=== PATIENT | female | born 1955 | race Hispanic/Latino ===

== ENCOUNTER 2021-03-03 05:26 | Inpatient (IN) | payer SELFPAY ==
[2021-03-03] MEDS ORDERED: IPRATROPIUM 0.02% NEBU 2.5 ML IH NR (06:38)
[2021-03-03] MEDS ORDERED: ALBUTEROL 2.5 MG/3 ML NEBU IH NR (06:38)
--- NOTE | 2021-03-03 06:47 | Emergency Department Report ---
HPI - General Chief Complaint: Dyspnea/Respdistress Time Seen by Provider: 03/03/21 06:31 - [facility] HPI: [place] 24 The patient is a 66-year-old female present with chief complaint of shortness of breath. Patient has a history of COPD and states she developed shortness of breath last night 20: 00. Patient has a subjective fever and states she has had an occasional cough productive of clear sputum for the past 3 to 4 months. Patient states she has been vaccinated against Covid receiving her second Pfizer shot approximately 1-2 months ago. ED Past Medical Hx - Past Medical History Previous Medical History?: Yes Hx Congestive Heart Failure: Yes Hx Diabetes: Yes Hx Kidney Stones: Yes Hx COPD: Yes Additional medical history: A-Fib - Surgical History Past Surgical History?: No Hx Appendectomy: Yes - Family History Family history: no significant - Social History Smoking Status: Former Smoker (None for over 5 years) Substance Use Type: Alcohol (Occasional) ED Review of Systems ROS: Stated complaint: SHORTNESS OF BREATH Other details as noted in HPI Constitutional: fever (Subjective) Eyes: denies: eye pain ENT: denies: throat pain Respiratory: cough, shortness of breath Cardiovascular: denies: chest pain Endocrine: no symptoms reported Genitourinary: denies: dysuria Musculoskeletal: denies: back pain Neurological: denies: headache Physical Exam - Physical Exam Vital Signs: Vital Signs 03/03/21 05:36 Temperature 99.7 F H Pulse Rate 105 H Respiratory 22 Rate Blood Pressure 139/67 [Right] O2 Sat by Pulse 93 Oximetry Physical Exam: GENERAL: The patient is well-developed well-nourished female lying on stretcher not appearing to be in acute distress. [] HEENT: Normocephalic. Atraumatic. Extraocular motions are intact. Patient has moist mucous membranes. NECK: Supple. Trachea midline CHEST/LUNGS: Occasional wheeze, occasional rhonchi. There is no respiratory distress noted. HEART/CARDIOVASCULAR: Irregularly irregular. There is no tachycardia. There is no gallop rub or murmur. ABDOMEN: Abdomen is soft, nontender. Patient has normal bowel sounds. There is no abdominal distention. SKIN: There is no rash. There is 1+ bilateral lower extremity edema. There is no diaphoresis. NEURO: The patient is awake, alert, and oriented. The patient is cooperative. The patient has no focal neurologic deficits. The patient has normal speech MUSCULOSKELETAL: There is no evidence of acute injury. ED Course Vital Signs 03/03/21 05:36 Temperature 99.7 F H Pulse Rate 105 H Respiratory 22 Rate Blood Pressure 139/67 [Right] O2 Sat by Pulse 93 Oximetry ED Medical Decision Making - Lab Data Result diagrams: 03/03/21 07:41 03/03/21 07:41 Laboratory Tests 03/03/21 03/03/21 03/03/21 07:41 07:41 07:41 WBC 14.9 H RBC 4.76 Hgb 13.4 Hct 42.0 MCV 88 MCH 28 MCHC 32 RDW 14.8 Plt Count 391 Lymph % (Auto) 7.2 L [place] % (Auto) 9.8 H Eos % (Auto) 0.7 Baso % (Auto) 0.9 Lymph # (Auto) 1.1 L [place] # (Auto) 1.5 H Eos # (Auto) 0.1 Baso # (Auto) 0.1 Seg Neutrophils % 81.4 H Seg Neutrophils # 12.1 H Sodium 136 L Potassium 4.5 Chloride 96.7 L Carbon Dioxide 26 Anion Gap 18 BUN 10 Creatinine 0.5 L Estimated GFR > 60 BUN/Creatinine Ratio 20 Glucose 135 H Lactic Acid 1.30 Calcium 9.1 NT-Pro-B Natriuret Pep 535.0 - EKG Data -: EKG Interpreted by Me EKG shows normal: axis Rate: tachycardia (107 bpm) - EKG Data When compared to previous EKG there are: previous EKG unavailable Interpretation: other (Atrial fibrillation) - Radiology Data Radiology results: report reviewed (Chest x-ray), image reviewed (Chest x-ray) interpreted by me: Chest [id number]. No definite focal infiltrate. No pneumothorax [facility] [address] [place] [address] XRay Report Signed Patient: CYRUS MEDLEY MR#: [id number] : 1955 Acct:[id number] Age/Sex: 66 / F ADM Date: 03/03/21 Loc: ED Attending Dr: Ordering Physician: ELIDIA HAIR MD Date of Service: 03/03/21 Procedure(s): XR chest 1V ap Accession Number(s): [id number] cc: ELIDIA HAIR MD Fluoro Time In Minutes: CHEST 1 VIEW INDICATION / CLINICAL INFORMATION: Shortness of breath, cough. COMPARISON: None available. FINDINGS: SUPPORT DEVICES: None. HEART / MEDIASTINUM: Enlarged cardiac silhouette. LUNGS / PLEURA: No significant pulmonary or pleural abnormality. No pneumothorax. ADDITIONAL FINDINGS: No significant additional findings. IMPRESSION: Enlarged cardiac silhouette without evidence of acute pulmonary findings. Signer Name: Scot Nicholas MD Signed: 03/03/2021 8:43 AM Workstation Name: [id number] Transcribed By: MIKE Dictated By: SCOT NICHOLAS MD Electronically Authenticated By: SCOT NICHOLAS MD Signed Date/Time: 03/03/21842 DD/ 1 TD/TT: Print Cancel - Medical Decision Making SPO2 85% on room air - Differential Diagnosis COPD exacerbation, CHF exacerbation, bronchitis, pneumonia Critical care attestation.: If time is entered above; I have spent that time in minutes in the direct care of this critically ill patient, excluding procedure time. ED Disposition Clinical Impression: Hypoxia, COPD exacerbation Disposition: ADMITTED INPATIENT Is pt being admited?: Yes Does the pt Need Aspirin: No Condition: Fair Instructions: Chronic Obstructive Pulmonary Disease (ED) Referrals: PRIMARY CARE, [Primary Care Provider] - 3-5 Days Time of Disposition: 10:20 (Hospitalist called (Dr Velásquez))
[2021-03-03 08:10] LABS: Basophils # (Auto) 0.1 K/mm3 (0.0-0.1); Basophils % (Auto) 0.9 % (0.0-1.8); Eosinophils # (Auto) 0.1 K/mm3 (0.0-0.4); Eosinophils % (Auto) 0.7 % (0.0-4.3); Hemoglobin 13.4 gm/dl (10.1-14.3); Lymphocytes # (Auto) 1.1 K/mm3 (1.2-5.4); Lymphocytes % (Auto) 7.2 % (13.4-35.0); Mean Corpuscular HGB Conc 32 % (30-34); Mean Corpuscular Volume 88 fl (79-97); Monocytes # (Auto) 1.5 K/mm3 (0.0-0.8); Monocytes % (Auto) 9.8 % (0.0-7.3); Platelet Count 391 K/mm3 (140-440); Red Blood Count 4.76 M/mm3 (3.65-5.03); Red Cell Distribution Width 14.8 % (13.2-15.2)
[2021-03-03] MEDS ORDERED: predniSONE 20 MG TAB PO ONE (08:18)
[2021-03-03 08:19] LABS: Blood Urea Nitrogen 10 mg/dL (7-17); Calcium 9.1 mg/dL (8.4-10.2); Hemolysis Index 3
[2021-03-03 08:36] LABS: BUN/Creatinine Ratio 20
--- NOTE | 2021-03-03 08:48 | XRay Report ---
CHEST 1 VIEW INDICATION / CLINICAL INFORMATION: Shortness of breath, cough. COMPARISON: None available. FINDINGS: SUPPORT DEVICES: None. HEART / MEDIASTINUM: Enlarged cardiac silhouette. LUNGS / PLEURA: No significant pulmonary or pleural abnormality. No pneumothorax. ADDITIONAL FINDINGS: No significant additional findings. IMPRESSION: Enlarged cardiac silhouette without evidence of acute pulmonary findings. Signer Name: Scot Barnett MD Signed: 03/03/2021 8:43 AM Workstation Name: [id number]
[2021-03-03] MEDS ORDERED: HYDROcodone/ACETAMINOPHEN 5-325 MG TAB PO ONE (09:53)
[2021-03-03] MEDS ORDERED: MORPHINE 4 MG/1 ML INJ IV PRN (11:05)
--- NOTE | 2021-03-03 11:05 | History and Physical Report ---
History of Present Illness Date of examination: 03/03/21 Date of admission: 03/03/21 10:22 Chief complaint: sob History of present illness: 66-year-old female with significant past medical history of COPD, atrial fibrillation CHF and diabetes mellitus type 2 who presents to the emergency department with complaint of shortness of breath. The patient states that she has had dyspnea for several months but progressively worsen which prompted her visit to the emergency room last night at 8 PM. Patient also reports subjective fever and an occasional cough productive of clear sputum for the past 3 to 4 months. Patient states she has been vaccinated against Covid receiving her second Pfizer shot approximately 1-2 months ago. Patient denies headache or visual disturbances. No nausea, vomiting or diarrhea Past History Past Medical History: atrial fib, COPD, diabetes, heart failure Past Surgical History: No surgical history Social history: smoking (Tobacco abuse [id number] history) Family history: no significant family history Medications and Allergies Allergies Allergy/AdvReac Type Severity Reaction Status Date / Time No Known Allergies Allergy Unverified 03/03/21 08:00 Review of Systems All systems: negative Exam - Constitutional Vitals: Temp Pulse Resp BP Pulse Ox 98.3 F 106 H 19 125/65 95 03/03/21 07:33 03/03/21 07:45 03/03/21 07:57 03/03/21 07:45 03/03/21 07:57 General appearance: Present: no acute distress, well-nourished - EENT Eyes: Present: PERRL ENT: hearing intact, clear oral mucosa - Neck Neck: Present: supple, normal ROM - Respiratory Respiratory effort: normal Respiratory: bilateral: CTA - Cardiovascular Heart Sounds: Present: S1 & S2. Absent: rub, click - Extremities Extremities: pulses symmetrical, No edema Peripheral Pulses: within normal limits - Abdominal General gastrointestinal: Present: soft, non-tender, non-distended, normal bowel sounds Female genitourinary: Present: normal - Integumentary Integumentary: Present: clear, warm, dry - Musculoskeletal Musculoskeletal: gait normal, strength equal bilaterally - Psychiatric Psychiatric: appropriate mood/affect, intact judgment & insight - Neurologic Neurologic: CNII-XII intact, moves all extremities Results - Labs CBC & Chem 7: 03/03/21 07:41 03/03/21 07:41 Labs: Laboratory Last Values WBC 14.9 K/mm3 (4.5-11.0) H 03/03/21 07:41 RBC 4.76 M/mm3 (3.65-5.03) 03/03/21 07:41 Hgb 13.4 gm/dl (10.1-14.3) 03/03/21 07:41 Hct 42.0 % (30.3-42.9) 03/03/21 07:41 MCV 88 fl (79-97) 03/03/21 07:41 MCH 28 pg (28-32) 03/03/21 07:41 MCHC 32 % (30-34) 03/03/21 07:41 RDW 14.8 % (13.2-15.2) 03/03/21 07:41 Plt Count 391 K/mm3 (140-440) 03/03/21 07:41 Lymph % (Auto) 7.2 % (13.4-35.0) L 03/03/21 07:41 [place] % (Auto) 9.8 % (0.0-7.3) H 03/03/21 07:41 Eos % (Auto) 0.7 % (0.0-4.3) 03/03/21 07:41 Baso % (Auto) 0.9 % (0.0-1.8) 03/03/21 07:41 Lymph # (Auto) 1.1 K/mm3 (1.2-5.4) L 03/03/21 07:41 [place] # (Auto) 1.5 K/mm3 (0.0-0.8) H 03/03/21 07:41 Eos # (Auto) 0.1 K/mm3 (0.0-0.4) 03/03/21 07:41 Baso # (Auto) 0.1 K/mm3 (0.0-0.1) 03/03/21 07:41 Seg Neutrophils % 81.4 % (40.0-70.0) H 03/03/21 07:41 Seg Neutrophils # 12.1 K/mm3 (1.8-7.7) H 03/03/21 07:41 ABG pH 7.568 (7.320-7.450) H 03/03/21 09:59 POC ABG pCO2 23.3 mmHg (32.0-48.0) L 03/03/21 09:59 POC ABG pO2 81.3 mmHg (83-108) L 03/03/21 09:59 POC ABG HCO3 2.6 03/03/21 09:59 ABG O2 Saturation 97.4 (0-100) 03/03/21 09:59 POC ABG Base Excess 0.4 03/03/21 09:59 ABG Hemoglobin 13.3 (12.0-17.5) 03/03/21 09:59 ABG Oxyhemoglobin 97.4 (94-98) 03/03/21 09:59 ABG Methemoglobin 0.3 (0.0-1.5) 03/03/21 09:59 ABG Sodium 144.2 mmol/L (136.0-145.0) 03/03/21 09:59 ABG Potassium 4.5 mmol/L (3.40-4.50) 03/03/21 09:59 ABG Chloride 106.0 mmol/L (98-107) 03/03/21 09:59 ABG Glucose 143 mg/dL (65-95) H 03/03/21 09:59 Carboxyhemoglobin 0.9 (0.5-1.5) 03/03/21 09:59 FiO2 % 0.21 03/03/21 09:59 Sodium 136 mmol/L (137-145) L 03/03/21 07:41 Potassium 4.5 mmol/L (3.6-5.0) 03/03/21 07:41 Chloride 96.7 mmol/L (98-107) L 03/03/21 07:41 Carbon Dioxide 26 mmol/L (22-30) 03/03/21 07:41 Anion Gap 18 mmol/L 03/03/21 07:41 BUN 10 mg/dL (7-17) 03/03/21 07:41 Creatinine 0.5 mg/dL (0.6-1.2) L 03/03/21 07:41 Estimated GFR > 60 ml/min 03/03/21 07:41 BUN/Creatinine Ratio 20 % 03/03/21 07:41 Glucose 135 mg/dL (65-100) H 03/03/21 07:41 Lactic Acid 1.30 mmol/L (0.7-2.0) 03/03/21 07:41 Calcium 9.1 mg/dL (8.4-10.2) 03/03/21 07:41 NT-Pro-B Natriuret Pep 535.0 pg/mL (0-900) 03/03/21 07:41 Arterial Blood Glucose 143 mg/dL (65-95) H 03/03/21 09:59 Arterial Blood Ionized Calcium 4.3 mg/dL (4.6-5.3) L 03/03/21 09:59 Microbiology: Microbiology 03/03/21 07:41 Peripheral/Venous Blood Culture - Preliminary Culture in Progress 03/03/21 07:41 Peripheral/Venous Blood Culture - Preliminary Culture in Progress Assessment and Plan Assessment and plan: Acute hypoxic respiratory failure COPD exacerbation Chronic heart failure Diabetes mellitus type 2 Atrial fibrillation 03/03/2021. The patient will be admitted and started on COPD pathway. Patient will receive bronchodilators/nebulizers along with IV steroids. Continue O2 to maintain sats greater than 92%. Consider pulmonary consultation. Check echocardiogram for further evaluation of heart function. Accu-Cheks and SSRI. Resume home medications for heart failure, diabetes and A. fib. Consider cardiology consultation.
[2021-03-03] MEDS ORDERED: ACETAMINOPHEN 325 MG TAB PO PRN (12:00)
[2021-03-03] MEDS ORDERED: ONDANSETRON 4 MG/2 ML INJ IV PRN (12:00)
[2021-03-03] MEDS ORDERED: MORPHINE 2 MG/1 ML INJ IV PRN (12:00)
[2021-03-03] MEDS ORDERED: DEXTROSE 50% IN WATER (25GM) 50 ML SYRINGE IV PRN (12:00)
[2021-03-03] MEDS ORDERED: ALBUTEROL 2.5 MG/3 ML NEBU IH PRN (12:00)
[2021-03-03] MEDS: INSULIN REGULAR, HUMAN 100 UNITS/1 ML SUB-Q SCH ×3 (13:47→21:29)
[2021-03-03] MEDS: HEPARIN 5,000 UNIT/1 ML VIAL SUB-Q SCH ×3 (13:47→21:13)
[2021-03-03] MEDS: methylPREDNISolone Sod Succinate 40 MG/1 ML INJ IV SCH (21:13)
[2021-03-03] MEDS: MORPHINE 2 MG/1 ML INJ IV PRN (21:13)
[2021-03-04] MEDS: guaiFENesin DM 200/20 MG ORAL LIQD 10 ML PO PRN (05:17)
[2021-03-04] MEDS: HEPARIN 5,000 UNIT/1 ML VIAL SUB-Q SCH ×3 (05:18→21:52)
[2021-03-04 06:52] LABS: Basophils % (Auto) 0.3 % (0.0-1.8); Hemoglobin 13.2 gm/dl (10.1-14.3); Lymphocytes # (Auto) 0.8 K/mm3 (1.2-5.4); Lymphocytes % (Auto) 8.8 % (13.4-35.0); Mean Corpuscular HGB Conc 32 % (30-34); Mean Corpuscular Volume 88 fl (79-97); Monocytes # (Auto) 0.6 K/mm3 (0.0-0.8); Platelet Count 376 K/mm3 (140-440); Red Blood Count 4.79 M/mm3 (3.65-5.03); Red Cell Distribution Width 15.1 % (13.2-15.2)
[2021-03-04 07:09] LABS: BUN/Creatinine Ratio 33; Blood Urea Nitrogen 10 mg/dL (7-17); Calcium 8.9 mg/dL (8.4-10.2); Hemolysis Index 3
[2021-03-04] MEDS: HYDROcodone/ACETAMINOPHEN 5-325 MG TAB PO PRN (08:25)
[2021-03-04] MEDS: methylPREDNISolone Sod Succinate 40 MG/1 ML INJ IV SCH ×2 (10:35→21:52)
[2021-03-04] MEDS: INSULIN REGULAR, HUMAN 100 UNITS/1 ML SUB-Q SCH ×4 (10:35→23:40)
--- NOTE | 2021-03-04 10:53 | Progress Note ---
Assessment and Plan Assessment and plan: Acute hypoxic respiratory failure COPD exacerbation Chronic heart failure Diabetes mellitus type 2 Atrial fibrillation 03/03/2021. The patient will be admitted and started on COPD pathway. Patient w ill receive bronchodilators/nebulizers along with IV steroids. Continue O2 to maintain sats greater than 92%. Consider pulmonary consultation. Check echocardiogram for further evaluation of heart function. Accu-Cheks and SSRI. Resume home medications for heart failure, diabetes and A. fib. Consider cardiology consultation. 03/04/2021. Continue IV steroids, bronchodilators/nebulizers and O2 to maintain sats greater than 92%. Patient currently on 2 L satting at 94%. Telemetry currently with atrial fibrillation but rate controlled. Continue current medications. Anticipate discharge in a.m. if respiratory status back to baseline History Interval history: No new issues overnight Hospitalist Physical - Constitutional Vitals: Temp Pulse Resp BP Pulse Ox 98.6 F 98 H 18 123/84 98 03/04/21 07:32 03/04/21 07:32 03/04/21 07:32 03/04/21 07:32 03/04/21 07:32 General appearance: Present: no acute distress, well-nourished - EENT Eyes: Present: PERRL, EOM intact ENT: hearing intact, clear oral mucosa, dentition normal - Neck Neck: Present: supple, normal ROM - Respiratory Respiratory effort: normal Respiratory: bilateral: CTA - Cardiovascular Rhythm: regular Heart Sounds: Present: S1 & S2. Absent: gallop, rub - Extremities Extremities: no ischemia, No edema, Full ROM - Abdominal General gastrointestinal: soft, non-tender, non-distended, normal bowel sounds - Integumentary Integumentary: Present: clear, warm, dry - Neurologic Neurologic: CNII-XII intact, moves all extremities Results - Labs CBC & Chem 7: 03/04/21 06:12 03/04/21 06:12 Labs: Laboratory Last Values WBC 9.4 K/mm3 (4.5-11.0) 03/04/21 06:12 RBC 4.79 M/mm3 (3.65-5.03) 03/04/21 06:12 Hgb 13.2 gm/dl (10.1-14.3) 03/04/21 06:12 Hct 42.0 % (30.3-42.9) 03/04/21 06:12 MCV 88 fl (79-97) 03/04/21 06:12 MCH 28 pg (28-32) 03/04/21 06:12 MCHC 32 % (30-34) 03/04/21 06:12 RDW 15.1 % (13.2-15.2) 03/04/21 06:12 Plt Count 376 K/mm3 (140-440) 03/04/21 06:12 Lymph % (Auto) 8.8 % (13.4-35.0) L 03/04/21 06:12 [place] % (Auto) 6.0 % (0.0-7.3) 03/04/21 06:12 Eos % (Auto) 0.0 % (0.0-4.3) 03/04/21 06:12 Baso % (Auto) 0.3 % (0.0-1.8) 03/04/21 06:12 Lymph # (Auto) 0.8 K/mm3 (1.2-5.4) L 03/04/21 06:12 [place] # (Auto) 0.6 K/mm3 (0.0-0.8) 03/04/21 06:12 Eos # (Auto) 0.0 K/mm3 (0.0-0.4) 03/04/21 06:12 Baso # (Auto) 0.0 K/mm3 (0.0-0.1) 03/04/21 06:12 Seg Neutrophils % 84.9 % (40.0-70.0) H 03/04/21 06:12 Seg Neutrophils # 8.0 K/mm3 (1.8-7.7) H 03/04/21 06:12 ABG pH 7.568 (7.320-7.450) H 03/03/21 09:59 POC ABG pCO2 23.3 mmHg (32.0-48.0) L 03/03/21 09:59 POC ABG pO2 81.3 mmHg (83-108) L 03/03/21 09:59 POC ABG HCO3 20.8 03/03/21 09:59 ABG O2 Saturation 97.4 (0-100) 03/03/21 09:59 POC ABG Base Excess 0.4 03/03/21 09:59 ABG Hemoglobin 13.3 (12.0-17.5) 03/03/21 09:59 ABG Oxyhemoglobin 96.2 (94-98) 03/03/21 09:59 ABG Methemoglobin 0.3 (0.0-1.5) 03/03/21 09:59 ABG Sodium 144.2 mmol/L (136.0-145.0) 03/03/21 09:59 ABG Potassium 4.5 mmol/L (3.40-4.50) 03/03/21 09:59 ABG Chloride 106.0 mmol/L (98-107) 03/03/21 09:59 ABG Glucose 143 mg/dL (65-95) H 03/03/21 09:59 Carboxyhemoglobin 0.9 (0.5-1.5) 03/03/21 09:59 FiO2 % 0.21 03/03/21 09:59 Sodium 139 mmol/L (137-145) 03/04/21 06:12 Potassium 4.5 mmol/L (3.6-5.0) 03/04/21 06:12 Chloride 99.3 mmol/L (98-107) 03/04/21 06:12 Carbon Dioxide 29 mmol/L (22-30) 03/04/21 06:12 Anion Gap 15 mmol/L 03/04/21 06:12 BUN 10 mg/dL (7-17) 03/04/21 06:12 Creatinine 0.3 mg/dL (0.6-1.2) L 03/04/21 06:12 Estimated GFR > 60 ml/min 03/04/21 06:12 BUN/Creatinine Ratio 33 % 03/04/21 06:12 Glucose 175 mg/dL (65-100) H 03/04/21 06:12 POC Glucose 175 mg/dL (70-105) H 03/04/21 07:29 Lactic Acid 1.30 mmol/L (0.7-2.0) 03/03/21 07:41 Calcium 8.9 mg/dL (8.4-10.2) 03/04/21 06:12 NT-Pro-B Natriuret Pep 535.0 pg/mL (0-900) 03/03/21 07:41 Arterial Blood Glucose 143 mg/dL (65-95) H 03/03/21 09:59 Arterial Blood Ionized Calcium 4.3 mg/dL (4.6-5.3) L 03/03/21 09:59 Microbiology: Microbiology 03/03/21 07:41 Peripheral/Venous Blood Culture - Preliminary NO GROWTH AFTER 24 HOURS 03/03/21 07:41 Peripheral/Venous Blood Culture - Preliminary NO GROWTH AFTER 24 HOURS Brown/IV: Voiding Method External Female Catheter Active Medications - Current Medications Current Medications: Generic Name Dose Route Start Last Admin Trade Name Freq PRN Reason Stop Dose Admin Acetaminophen 650 mg 03/03/21 12:00 Acetaminophen 325 Mg Tab PO Q4H PRN Pain MILD(1-3)/Fever >100.5/CABAN Hydrocodone Bitart/Acetaminophen 2 each 03/03/21 12:00 03/04/21 08:25 Hydrocodone/Acetaminophen 5-325 Mg Tab PO 2 each Q6H PRN Administration Pain, Moderate (4-6) Albuterol 2.5 mg 03/03/21 12:00 03/04/21 05:53 Albuterol 2.5 Mg/3 Ml Nebu IH 2.5 mg Q4HRT PRN Administration Shortness Of Breath Dextrose 50 ml 03/03/21 12:00 Dextrose 50% In Water (25gm) 50 Ml Syringe IV Q30MIN PRN Hypoglycemia Protocol Guaifenesin 10 ml 03/04/21 05:13 03/04/21 05:17 Guaifenesin Dm 200/20 Mg Oral Liqd 10 Ml PO 10 ml Q6H PRN Administration Cough Heparin Sodium (Porcine) 5,000 unit 03/03/21 12:00 03/04/21 05:18 Heparin 5,000 Unit/1 Ml Vial SUB-Q 5,000 unit Q8HR [place] Administration Insulin Human Regular 0 units 03/03/21 11:30 03/04/21 10:35 Insulin Regular, Human 100 Units/1 Ml SUB-Q 2 units ACHS CH[place]ICK Administration Protocol Methylprednisolone Sodium Succinate 40 mg 03/03/21 22:00 03/04/21 10:35 Methylprednisolone Sod Succinate 40 Mg/1 Ml Inj IV 40 mg Q12HR [place]AD[place]ICK Administration Morphine Sulfate 2 mg 03/03/21 12:00 03/03/21 21:13 Morphine 2 Mg/1 Ml Inj IV 2 mg Q4H PRN Administration Pain , Severe (7-10) Ondansetron HCl 4 mg 03/03/21 12:00 Ondansetron 4 Mg/2 Ml Inj IV Q8H PRN Nausea And Vomiting Sodium Chloride 10 ml 03/03/21 22:00 03/04/21 10:35 Sodium Chloride 0.9% 10 Ml Flush Syringe IV 10 ml BID CHADWICK Administration Sodium Chloride 10 ml 03/03/21 12:00 Sodium Chloride 0.9% 10 Ml Flush Syringe IV PRN PRN LINE FLUSH
--- NOTE | 2021-03-04 13:26 | Electrocardiograph Report ---
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
[2021-03-04] MEDS: MORPHINE 2 MG/1 ML INJ IV PRN (21:54)
[2021-03-05] MEDS: HEPARIN 5,000 UNIT/1 ML VIAL SUB-Q SCH ×3 (05:42→21:19)
[2021-03-05] MEDS: HYDROcodone/ACETAMINOPHEN 5-325 MG TAB PO PRN (05:51)
--- NOTE | 2021-03-05 08:08 | Discharge Summary ---
Providers - Providers Date of Admission: 03/03/21 11:05 Date of discharge: 03/05/21 Attending physician: JENNIFER HAQUE Primary care physician: MEDICAL OFFICE SCHEDULER Hospitalization Reason for admission: COPD exac Condition: Fair Hospital course: 66-year-old female with significant past medical history of COPD, atrial fibrillation CHF and diabetes mellitus type 2 who presented to the emergency department with complaint of shortness of breath. 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 Patient also reported subjective fever and an occasional cough productive of clear sputum for the past 3 to 4 months. Patient stated she has been vaccinated against Covid receiving her second Pfizer shot approximately 1-2 months ago. The patient was admitted with diagnosis of acute hypoxic respiratory failure, COPD exacerbation, chronic heart failurecompensated, diabetes mellitus type 2 and atrial fibrillation. Hospital course: 03/03/2021. The patient will be admitted and started on COPD pathway. Patient will receive bronchodilators/nebulizers along with IV steroids. Continue O2 to maintain sats greater than 92%. Consider pulmonary consultation. Check echocardiogram for further evaluation of heart function. Accu-Cheks and SSRI. Resume home medications for heart failure, diabetes and A. fib. Consider cardiology consultation. 03/04/2021. Continue IV steroids, bronchodilators/nebulizers and O2 to maintain sats greater than 92%. Patient currently on 2 L satting at 94%. Telemetry currently with atrial fibrillation but rate controlled. Continue current medications. Anticipate discharge in a.m. if respiratory status back to baseline 03/05/2021. Patient is back to her baseline respiratory status and satting above 92% on room air. Patient will be discharged home with tapering dose of steroids and is to continue bronchodilators/nebulizers. Dedicated discharge time 32 minutes Disposition: 01 HOME / SELF CARE / HOMELESS Final Discharge Diagnosis (Prints w/discharge instructions): cute hypoxic respiratory failure, COPD exacerbation, chronic heart failurecompensated, diabetes mellitus type 2 and atrial fibrillation. Core Measure Documentation - Palliative Care Palliative Care/ Comfort Measures: Not Applicable - Core Measures Any of the following diagnoses?: none Exam - Constitutional Vitals: Temp Pulse Resp BP Pulse Ox 98.3 F 98 H 20 154/88 96 03/05/21 03:31 03/05/21 03:31 03/05/21 03:31 03/05/21 03:31 03/05/21 03:31 General appearance: Present: no acute distress, well-nourished - EENT Eyes: Present: PERRL ENT: hearing intact, clear oral mucosa - Neck Neck: Present: supple, normal ROM - Respiratory Respiratory effort: normal Respiratory: bilateral: CTA - Cardiovascular Heart Sounds: Present: S1 & S2. Absent: rub, click - Extremities Extremities: pulses symmetrical, No edema Peripheral Pulses: within normal limits - Abdominal General gastrointestinal: Present: soft, non-tender, non-distended, normal bowel sounds Female genitourinary: Present: normal - Integumentary Integumentary: Present: clear, warm, dry - Musculoskeletal Musculoskeletal: gait normal, strength equal bilaterally - Psychiatric Psychiatric: appropriate mood/affect, intact judgment & insight - Neurologic Neurologic: CNII-XII intact, moves all extremities Plan Activity: advance as tolerated Weight Bearing Status: Weight Bear as Tolerated Diet: low fat, low cholesterol, low salt, diabetic Follow up with: PRIMARY CARE,MD [Primary Care Provider] - 3-5 Days Prescriptions: Ipratropium (Nf) [Atrovent] 2 puff IH Q6HR PRN 30 Days inha PRN Reason: Wheezing Apixaban [Eliquis] 5 mg PO QDAY #30 Prednisone [predniSONE 10 mg (6-Day Pack, 21 Tabs)] 10 mg PO .TAPER #1 tab.ds.pk
[2021-03-05] MEDS: INSULIN REGULAR, HUMAN 100 UNITS/1 ML SUB-Q SCH ×3 (09:33→21:18)
[2021-03-05] MEDS: methylPREDNISolone Sod Succinate 40 MG/1 ML INJ IV SCH ×2 (09:33→21:19)
--- NOTE | 2021-03-05 16:07 | XRay Report ---
CHEST 1 VIEW INDICATION: crackles in chest. COMPARISON: 03/03/2021 FINDINGS: Support devices: None. Heart: Stable moderate cardiomegaly. Lungs/Pleura: The lungs are generally clear with no evidence for infiltrate, pleural fluid or pneumot horax. Additional findings: None. IMPRESSION: Moderate cardiomegaly. Lungs clear. Signer Name: Iglesia German Jr, MD Signed: 03/05/2021 4:03 PM Workstation Name: [id number]
[2021-03-05] MEDS: guaiFENesin DM 200/20 MG ORAL LIQD 10 ML PO PRN (20:48)
[2021-03-06] MEDS: guaiFENesin DM 200/20 MG ORAL LIQD 10 ML PO PRN (01:47)
[2021-03-06] MEDS: MORPHINE 2 MG/1 ML INJ IV PRN (01:47)
[2021-03-06] MEDS: HEPARIN 5,000 UNIT/1 ML VIAL SUB-Q SCH (05:26)
[2021-03-06] MEDS: INSULIN REGULAR, HUMAN 100 UNITS/1 ML SUB-Q SCH ×2 (08:01→08:04)
--- NOTE | 2021-03-06 09:30 | Progress Note ---
Assessment and Plan Assessment and plan: Acute hypoxic respiratory failure COPD exacerbation Chronic heart failure Diabetes mellitus type 2 Atrial fibrillation 03/03/2021. The patient will be admitted and started on COPD pathway. Patient w ill receive bronchodilators/nebulizers along with IV steroids. Continue O2 to maintain sats greater than 92%. Consider pulmonary consultation. Check echocardiogram for further evaluation of heart function. Accu-Cheks and SSRI. Resume home medications for heart failure, diabetes and A. fib. Consider cardiology consultation. 03/04/2021. Continue IV steroids, bronchodilators/nebulizers and O2 to maintain sats greater than 92%. Patient currently on 2 L satting at 94%. Telemetry currently with atrial fibrillation but rate controlled. Continue current medications. Anticipate discharge in a.m. if respiratory status back to baseline 03/05/2021. Nurse reported pt with desaturation with exertion. Pt qualified for home O2 which will be arranged. Also, pt with nRVR assoc with afib noted on telemetry with coughing. Cardiology saw the pt in consultation and recommends to continue home med of cardizem 240mg daily. No new changes. History Interval history: No new issues overnight Hospitalist Physical - Constitutional Vitals: Temp Pulse Resp BP Pulse Ox 98.3 F 107 H 20 158/90 99 03/06/21 07:36 03/06/21 07:36 03/06/21 07:36 03/06/21 07:36 03/06/21 07:36 General appearance: Present: no acute distress, well-nourished - EENT Eyes: Present: PERRL, EOM intact ENT: hearing intact, clear oral mucosa, dentition normal - Neck Neck: Present: supple, normal ROM - Respiratory Respiratory effort: normal Respiratory: bilateral: CTA - Cardiovascular Rhythm: regular Heart Sounds: Present: S1 & S2. Absent: gallop, rub - Extremities Extremities: no ischemia, No edema, Full ROM - Abdominal General gastrointestinal: soft, non-tender, non-distended, normal bowel sounds - Integumentary Integumentary: Present: clear, warm, dry - Neurologic Neurologic: CNII-XII intact, moves all extremities Results - Labs CBC & Chem 7: 03/04/21 06:12 03/04/21 06:12 Labs: Laboratory Last Values WBC 9.4 K/mm3 (4.5-11.0) 03/04/21 06:12 RBC 4.79 M/mm3 (3.65-5.03) 03/04/21 06:12 Hgb 13.2 gm/dl (10.1-14.3) 03/04/21 06:12 Hct 42.0 % (30.3-42.9) 03/04/21 06:12 MCV 88 fl (79-97) 03/04/21 06:12 MCH 28 pg (28-32) 03/04/21 06:12 MCHC 32 % (30-34) 03/04/21 06:12 RDW 15.1 % (13.2-15.2) 03/04/21 06:12 Plt Count 376 K/mm3 (140-440) 03/04/21 06:12 Lymph % (Auto) 8.8 % (13.4-35.0) L 03/04/21 06:12 Orange % (Auto) 6.0 % (0.0-7.3) 03/04/21 06:12 Eos % (Auto) 0.0 % (0.0-4.3) 03/04/21 06:12 Baso % (Auto) 0.3 % (0.0-1.8) 03/04/21 06:12 Lymph # (Auto) 0.8 K/mm3 (1.2-5.4) L 03/04/21 06:12 Orange # (Auto) 0.6 K/mm3 (0.0-0.8) 03/04/21 06:12 Eos # (Auto) 0.0 K/mm3 (0.0-0.4) 03/04/21 06:12 Baso # (Auto) 0.0 K/mm3 (0.0-0.1) 03/04/21 06:12 Seg Neutrophils % 84.9 % (40.0-70.0) H 03/04/21 06:12 Seg Neutrophils # 8.0 K/mm3 (1.8-7.7) H 03/04/21 06:12 ABG pH 7.568 (7.320-7.450) H 03/03/21 09:59 POC ABG pCO2 23.3 mmHg (32.0-48.0) L 03/03/21 09:59 POC ABG pO2 81.3 mmHg (83-108) L 03/03/21 09:59 POC ABG HCO3 20.8 03/03/21 09:59 ABG O2 Saturation 97.4 (0-100) 03/03/21 09:59 POC ABG Base Excess 0.4 03/03/21 09:59 ABG Hemoglobin 13.3 (12.0-17.5) 03/03/21 09:59 ABG Oxyhemoglobin 96.2 (94-98) 03/03/21 09:59 ABG Methemoglobin 0.3 (0.0-1.5) 03/03/21 09:59 ABG Sodium 144.2 mmol/L (136.0-145.0) 03/03/21 09:59 ABG Potassium 4.5 mmol/L (3.40-4.50) 03/03/21 09:59 ABG Chloride 106.0 mmol/L (98-107) 03/03/21 09:59 ABG Glucose 143 mg/dL (65-95) H 03/03/21 09:59 Carboxyhemoglobin 0.9 (0.5-1.5) 03/03/21 09:59 FiO2 % 21.0 03/03/21 09:59 Sodium 139 mmol/L (137-145) 03/04/21 06:12 Potassium 4.5 mmol/L (3.6-5.0) 03/04/21 06:12 Chloride 99.3 mmol/L (98-107) 03/04/21 06:12 Carbon Dioxide 29 mmol/L (22-30) 03/04/21 06:12 Anion Gap 15 mmol/L 03/04/21 06:12 BUN 10 mg/dL (7-17) 03/04/21 06:12 Creatinine 0.3 mg/dL (0.6-1.2) L 03/04/21 06:12 Estimated GFR > 60 ml/min 03/04/21 06:12 BUN/Creatinine Ratio 33 % 03/04/21 06:12 Glucose 175 mg/dL (65-100) H 03/04/21 06:12 POC Glucose 118 mg/dL (70-105) H 03/06/21 07:36 Lactic Acid 1.30 mmol/L (0.7-2.0) 03/03/21 07:41 Calcium 8.9 mg/dL (8.4-10.2) 03/04/21 06:12 NT-Pro-B Natriuret Pep 535.0 pg/mL (0-900) 03/03/21 07:41 Arterial Blood Glucose 143 mg/dL (65-95) H 03/03/21 09:59 Arterial Blood Ionized Calcium 4.3 mg/dL (4.6-5.3) L 03/03/21 09:59 Microbiology: Microbiology 03/03/21 07:41 Peripheral/Venous Blood Culture - Preliminary NO GROWTH AFTER 72 HOURS 03/03/21 07:41 Peripheral/Venous Blood Culture - Preliminary NO GROWTH AFTER 72 HOURS Bronw/IV: Voiding Method External Female Catheter Active Medications - Current Medications Current Medications: Generic Name Dose Route Start Last Admin Trade Name Freq PRN Reason Stop Dose Admin Acetaminophen 650 mg 03/03/21 12:00 Acetaminophen 325 Mg Tab PO Q4H PRN Pain MILD(1-3)/Fever >100.5/CABAN Hydrocodone Bitart/Acetaminophen 2 each 03/03/21 12:00 03/05/21 05:51 Hydrocodone/Acetaminophen 5-325 Mg Tab PO 2 each Q6H PRN Administration Pain, Moderate (4-6) Albuterol 2.5 mg 03/03/21 12:00 03/04/21 05:53 Albuterol 2.5 Mg/3 Ml Nebu IH 2.5 mg Q4HRT PRN Administration Shortness Of Breath Dextrose 50 ml 03/03/21 12:00 Dextrose 50% In Water (25gm) 50 Ml Syringe IV Q30MIN PRN Hypoglycemia Protocol Guaifenesin 10 ml 03/04/21 05:13 03/06/21 01:47 Guaifenesin Dm 200/20 Mg Oral Liqd 10 Ml PO 10 ml Q6H PRN Administration Cough Heparin Sodium (Porcine) 5,000 unit 03/03/21 12:00 03/06/21 05:26 Heparin 5,000 Unit/1 Ml Vial SUB-Q 5,000 unit Q8HR [facility] Administration Insulin Human Regular 0 units 03/03/21 11:30 03/06/21 08:04 Insulin Regular, Human 100 Units/1 Ml SUB-Q Not Given ACHS [facility] Protocol Methylprednisolone Sodium Succinate 40 mg 03/03/21 22:00 03/05/21 21:19 Methylprednisolone Sod Succinate 40 Mg/1 Ml Inj IV 40 mg Q12HR [facility] Administration Morphine Sulfate 2 mg 03/03/21 12:00 03/06/21 01:47 Morphine 2 Mg/1 Ml Inj IV 2 mg Q4H PRN Administration Pain , Severe (7-10) Ondansetron HCl 4 mg 03/03/21 12:00 Ondansetron 4 Mg/2 Ml Inj IV Q8H PRN Nausea And Vomiting Sodium Chloride 10 ml 03/03/21 22:00 03/05/21 21:19 Sodium Chloride 0.9% 10 Ml Flush Syringe IV 10 ml BID [facility] Administration Sodium Chloride 10 ml 03/03/21 12:00 Sodium Chloride 0.9% 10 Ml Flush Syringe IV PRN PRN LINE FLUSH
[2021-03-06] MEDS: methylPREDNISolone Sod Succinate 40 MG/1 ML INJ IV SCH (09:41)
--- NOTE | 2021-03-06 09:46 | Discharge Summary ---
Providers - Providers Date of Admission: 03/03/21 11:05 Date of discharge: 03/06/21 Attending physician: JENNIFER HAQUE 03/05/21 17:26 Consult to Cardiology [CONS] Routine Consulting Provider: RIOS HOWE Reason For Exam: Rapid HR Primary care physician: [facility] [employer] Hospitalization Reason for admission: sob Condition: Fair Hospital course: 66-year-old female with significant past medical history of COPD, atrial fibrillation CHF and diabetes mellitus type 2 who presented to the emergency department with complaint of shortness of breath. 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 Patient also reported subjective fever and an occasional cough productive of clear sputum for the past 3 to 4 months. Patient stated she has been vaccinated against Covid receiving her second Pfizer shot approximately 1-2 months ago. The patient was admitted with diagnosis of acute hypoxic respiratory failure, COPD exacerbation, chronic heart failurecompensated, diabetes mellitus type 2 and atrial fibrillation. Hospital course: 03/03/2021. The patient will be admitted and started on COPD pathway. Patient will receive bronchodilators/nebulizers along with IV steroids. Continue O2 to maintain sats greater than 92%. Consider pulmonary consultation. Check echocardiogram for further evaluation of heart function. Accu-Cheks and SSRI. Resume home medications for heart failure, diabetes and A. fib. Consider cardiology consultation. 03/04/2021. Continue IV steroids, bronchodilators/nebulizers and O2 to maintain sats greater than 92%. Patient currently on 2 L satting at 94%. Telemetry currently with atrial fibrillation but rate controlled. Continue current medications. Anticipate discharge in a.m. if respiratory status back to baseline 03/05/2021. Nurse reported pt with desaturation with exertion. Pt qualified for home O2 which will be arranged. Also, pt with nRVR assoc with afib noted on telemetry with coughing. Cardiology saw the pt in consultation and recommends to continue home med of cardizem 240mg daily. No new changes. Dedicated discharge time 32 minutes Disposition: HOME / SELF CARE / HOMELESS Final Discharge Diagnosis (Prints w/discharge instructions): Acute hypoxic resp failure, copd exac Core Measure Documentation - Palliative Care Palliative Care/ Comfort Measures: Not Applicable - Core Measures Any of the following diagnoses?: none Exam - Constitutional Vitals: Temp Pulse Resp BP Pulse Ox 98.3 F 107 H 20 158/90 99 03/06/21 07:36 03/06/21 07:36 03/06/21 07:36 03/06/21 07:36 03/06/21 07:36 General appearance: Present: no acute distress, well-nourished - EENT Eyes: Present: PERRL ENT: hearing intact, clear oral mucosa - Neck Neck: Present: supple, normal ROM - Respiratory Respiratory effort: normal Respiratory: bilateral: CTA - Cardiovascular Heart Sounds: Present: S1 & S2. Absent: rub, click - Extremities Extremities: pulses symmetrical, No edema Peripheral Pulses: within normal limits - Abdominal General gastrointestinal: Present: soft, non-tender, non-distended, normal bowel sounds Female genitourinary: Present: normal - Integumentary Integumentary: Present: clear, warm, dry - Musculoskeletal Musculoskeletal: gait normal, strength equal bilaterally - Psychiatric Psychiatric: appropriate mood/affect, intact judgment & insight - Neurologic Neurologic: CNII-XII intact, moves all extremities Plan Activity: advance as tolerated Weight Bearing Status: Weight Bear as Tolerated Diet: regular Durable Medical Equipment Needed Upon Discharge: Oxygen Follow up with: PRIMARY CARE,MD [Primary Care Provider] - 3-5 Days Prescriptions: Ipratropium (Nf) [Atrovent] 2 puff IH Q6HR PRN 30 Days inha PRN Reason: Wheezing dilTIAZem CD [Cardizem Cd] 240 mg PO QDAY #30 cap Apixaban [Eliquis] 5 mg PO QDAY #30 Prednisone [predniSONE 10 mg (6-Day Pack, 21 Tabs)] 10 mg PO .TAPER #1 tab.ds.pk
--- NOTE | 2021-03-06 10:13 | Consultation ---
History of Present Illness Consult date: 03/06/21 Consult reason: atrial fibrillation History of present illness: The patient is a 66-year-old woman with a history of COPD resulting from a [id number] history of tobacco abuse. She also has chronic atrial fibrillation on rate control strategy, and oral anticoagulation with Eliquis. For her atrial fibrillation, she sees her primary shop assistant Dr. Andrew on a regular basis, as recently as 2 months ago. She is followed up with routine echocardiograms in the outpatient setting and also reports negative dermatologic stress test in the past. Patient presented to the hospital at this time with shortness of breath, which was reminiscent of an exacerbation of her COPD. Symptoms were associated with intermittent cough. She has been undergoing management of her COPD exacerbation, but cardiology is asked to see her because every time she has a coughing spell, there is an elevation of the ventricular rate to her atrial fib rillation. Rate is well controlled on 240 mg of Cardizem when she is resting in no distress. EKG as described was atrial fibrillation, no acute ST or T wave changes. Chest x-ray shows cardiomegaly representing evidence of left atrial enlargement, and interstitial changes of COPD in the lung [place]. Past History Past Medical History: atrial fib, COPD, diabetes Past Surgical History: No surgical history Social history: smoking (Tobacco abuse [id number] history) Family history: no significant family history Medications and Allergies Allergies Allergy/AdvReac Type Severity Reaction Status Date / Time No Known Allergies Allergy Verified 03/04/21 15:28 Home Medications Medication Instructions Recorded Confirmed Last Taken Type Apixaban [Eliquis] 5 mg PO QDAY #30 03/05/21 Unknown Rx Furosemide [Lasix] 20 mg PO QDAY 03/05/21 03/05/21 Unknown History Ipratropium (Nf) [Atrovent] 2 puff IH Q6HR PRN 30 Days inha 03/05/21 Unknown Rx Metoprolol [Lopressor TAB] 50 mg PO QDAY 03/05/21 03/05/21 Unknown History Prednisone [predniSONE 10 mg 10 mg PO .TAPER #1 tab.ds.pk 03/05/21 Unknown Rx (6-Day Pack, 21 Tabs)] glipiZIDE [Glucotrol] 5 mg PO QDAY 03/05/21 03/05/21 Unknown History dilTIAZem CD [Cardizem Cd] 240 mg PO QDAY #30 cap 03/06/21 Unknown Rx Active Meds: Active Medications Acetaminophen (Acetaminophen 325 Mg Tab) 650 mg PO Q4H PRN PRN Reason: Pain MILD(1-3)/Fever >100.5/CABAN Hydrocodone Bitart/Acetaminophen (Hydrocodone/Acetaminophen 5-325 Mg Tab) 2 each PO Q6H PRN PRN Reason: Pain, Moderate (4-6) Last Admin: 03/05/21 05:51 Dose: 2 each Documented by: Albuterol (Albuterol 2.5 Mg/3 Ml Nebu) 2.5 mg IH Q4HRT PRN PRN Reason: Shortness Of Breath Last Admin: 03/04/21 05:53 Dose: 2.5 mg Documented by: Dextrose (Dextrose 50% In Water (25gm) 50 Ml Syringe) 50 ml IV Q30MIN PRN; Protocol PRN Reason: Hypoglycemia Guaifenesin (Guaifenesin Dm 200/20 Mg Oral Liqd 10 Ml) 10 ml PO Q6H PRN PRN Reason: Cough Last Admin: 03/06/21 01:47 Dose: 10 ml Documented by: Heparin Sodium (Porcine) (Heparin 5,000 Unit/1 Ml Vial) 5,000 unit SUB-Q Q8HR [facility] Last Admin: 03/06/21 05:26 Dose: 5,000 unit Documented by: Insulin Human Regular (Insulin Regular, Human 100 Units/1 Ml) 0 units SUB-Q ACHS [facility]; Protocol Last Admin: 03/06/21 08:04 Dose: Not Given Documented by: Methylprednisolone Sodium Succinate (Methylprednisolone Sod Succinate 40 Mg/1 Ml Inj) 40 mg IV Q12HR [facility] Last Admin: 03/06/21 09:41 Dose: 40 mg Documented by: Morphine Sulfate (Morphine 2 Mg/1 Ml Inj) 2 mg IV Q4H PRN PRN Reason: Pain , Severe (7-10) Last Admin: 03/06/21 01:47 Dose: 2 mg Documented by: Ondansetron HCl (Ondansetron 4 Mg/2 Ml Inj) 4 mg IV Q8H PRN PRN Reason: Nausea And Vomiting Sodium Chloride (Sodium Chloride 0.9% 10 Ml Flush Syringe) 10 ml IV BID [facility] Last Admin: 03/06/21 09:41 Dose: 10 ml Documented by: Sodium Chloride (Sodium Chloride 0.9% 10 Ml Flush Syringe) 10 ml IV PRN PRN PRN Reason: LINE FLUSH Review of Systems Cardiovascular: palpitations, rapid/irregular heart beat, shortness of breath, no chest pain, no orthopnea, no edema, no syncope, no lightheadedness Physical Examination Vital Signs Temp Pulse Resp BP Pulse Ox 99.7 F H 105 H 22 139/67 93 03/03/21 05:36 03/03/21 05:36 03/03/21 05:36 03/03/21 05:36 03/03/21 05:36 General appearance: no acute distress HEENT: Positive: PERRL Neck: Positive: neck supple Cardiac: Positive: irregularly irregular Lungs: Positive: Decreased Breath Sounds Neuro: Positive: Grossly Intact Abdomen: Positive: Soft Female genitourinary: deferred Skin: Positive: Clear Extremities: Absent: edema Results 03/04/21 06:12 03/04/21 06:12 EKG interpretations - Telemetry EKG Rhythm: Atrial Fibrillation Assessment and Plan - Patient Problems (1) Chronic atrial fibrillation Current Visit: Yes Status: Acute Plan to address problem: Patient with chronic atrial fibrillation on diltiazem to 240 mg and Eliquis 5 mg twice daily. Increases in atrial fibrillation ventricular rate associated with stress such as coughing and exacerbation of COPD should be managed by treating the primary cause. Recommended to patient that she will benefit from pulmonary management of her COPD now and in the outpatient setting.
[2021-03-06 11:35] VITALS: BP 154/108
== END 2021-03-06 13:19 | disposition home or self-care (01) | DRG 189 ==
LOC: ED 05:26 → 3A 10:22 → OBSVTOIN 11:05 → 4A 11:26
PROVIDERS: ADMIT Hospitalist; ATTEND Hospitalist
PROC: 4A033R1 Measurement of Arterial Saturation, Peripheral, Percutaneous Approach (ICD-10-PCS; principal; 2021-03-03)
DX: J96.01 Acute respiratory failure with hypoxia (principal); J44.1 Chronic obstructive pulmonary disease with (acute) exacerbation; I48.91 Unspecified atrial fibrillation; E11.9 Type 2 diabetes mellitus without complications; I50.9 Heart failure, unspecified; Z90.49 Acquired absence of other specified parts of digestive tract
CPT/HCPCS: 36415; 71045; 80048; 82140; 82805; 82962; 83880; 85025; 87040; 93005; 94640; 94760; G0378; J1644; J1815; J2270; J2920; J7512